=== PATIENT | male | born 1970 | race Two or more races ===

== ENCOUNTER 2017-02-15 14:41 | Outpatient (CLI) | payer BC ==
--- NOTE | 2017-02-16 09:49 | XRAY Report ---
COMPLETE CERVICAL SPINE: 02/15/2017 CLINICAL INDICATION: Neck pain. FINDINGS: AP, lateral, oblique, odontoid views of the cervical spine demonstrate normal height and a lignment of the vertebral bodies. There is mild degenerative disc and facet disease present. There is no evidence of fracture or subluxation. No significant osseous neural foraminal narrowing is appr eciated. IMPRESSION: MILD DEGENERATIVE CHANGES. JOB #: [id number] EXT JOB #:[id number]
== END 2017-02-15 14:42 | disposition home or self-care (01) ==
LOC: DI.N 14:41
PROVIDERS: ATTEND Family Medicine
DX: M50.30 Other cervical disc degeneration, unspecified cervical region (principal); M47.892 Other spondylosis, cervical region
CPT/HCPCS: 72050

== ENCOUNTER 2017-07-24 00:33 | Emergency (ER) | payer BC, OTHER ==
[2017-07-24] MEDS ORDERED: DEXAMETHASONE 10 MG/ML VIAL PO STA (01:15)
[2017-07-24] MEDS ORDERED: CYCLOBENZAPRINE 10 MG TABLET PO STA (01:16)
--- NOTE | 2017-07-24 01:17 | ED Physician Documentation ---
PD HPI BACK PAIN - Stated complaint Stated Complaint: BACK PX - Chief complaint Chief Complaint: Back Pain - History obtained from History obtained from: Patient, Family - History of Present Illness Timing - onset: How many days ago (4) Timing - details: Gradual onset, Still present Location: Lower, Left Quality: Pain, Spasm, Similar to prior episodes Associated symptoms: No: Fever, Weakness, Numbness, Unable to urinate, Hematuria , Incontinent of stool Improves with: Position, Meds Worsened by: Movement, Lifting Contributing factors: Lifting Similar symptoms before: Diagnosis, Work up / diagnostics, Treatment Recently seen: Not recently seen - Additional information Additional information: Patient is a 47 year old male with a history of chronic back pain with multiple surgeries who is presenting to the emergency department for back pain. 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 Patient took a job with [employer] recently. about 4 days ago patient had to lift a number of heavy boxes and seemed to tweak his back. Patient states that he keeps getting sharp, shooting pains down his right side. Patient states that he has plenty of pain medication but he wants to make sure his hardware is in place. Review of Systems Constitutional: denies: Fever, Chills Eyes: reports: Reviewed and negative Ears: reports: Reviewed and negative Nose: reports: Reviewed and negative Throat: reports: Reviewed and negative GI: denies: Abdominal Pain, Nausea, Vomiting : denies: Dysuria, Frequency, Hesitancy, Unable to Void, Incontinent Skin: denies: Rash, Lesions Musculoskeletal: reports: Back pain Neurologic: denies: Generalized weakness, Focal weakness, Numbness Immunocompromised: denies: Immunocompromised PD PAST MEDICAL HISTORY - Past Medical History Past Medical History: Yes Endocrine/Autoimmune: HyPOthyroidism Musculoskeletal: Chronic back pain - Past Surgical History Past Surgical History: Yes - Present Medications Home Medications: Ambulatory Orders Medication Instructions Recorded Confirmed Diclofenac Sodium [Voltaren] 1 applic TID 07/24/17 07/24/17 Hydrocodone/Acetaminophen 1 tab PO Q4H PRN MDD 5 tabs 07/24/17 07/24/17 [Hydrocodone-Acetamin 10-325 mg] Levothyroxine Sodium [Synthroid] 305 mcg PO DAILY 07/24/17 07/24/17 diazePAM [Valium] 5 - 10 mg PO TID PRN #15 tablet 07/24/17 - Allergies Allergies/Adverse Reactions: Allergies Allergy/AdvReac Type Severity Reaction Status Date / Time Iodinated Contrast- Oral and Allergy Hives Verified 07/24/17 01:06 IV Dye - Social History Does the pt smoke?: No Smoking Status: Never smoker Does the pt drink ETOH?: Yes Does the pt have substance abuse?: No - Immunizations Immunizations are current?: Yes PD ED PE NORMAL - Vitals Vital signs reviewed: Yes - General General: Alert and oriented X 3 - HEENT HEENT: Atraumatic - Cardiac Cardiac: RRR - Respiratory Respiratory: No respiratory distress - Abdomen Abdomen: Non distended - Derm Derm: Normal color, Warm and dry - Neuro Neuro: Alert and oriented X 3, No motor deficit, No sensory deficit PD ED PE EXPANDED - General General: Alert, In Pain - Back Back: Soft tissue tenderness (tenderness to palpation in paraspinal muscles), Other (prior surgical scars appreciated) Results - Vitals Vitals: Vital Signs - 24 hr 07/24/17 07/24/17 01:03 02:50 Temperature 36.7 C Heart Rate 85 78 Respiratory 16 16 Rate Blood Pressure 175/94 H 138/96 H O2 Saturation 84 L 99 Oxygen O2 Source Room air - Rads (name of study) lumbar spine x-ray Radiology: Final report received (no acute abnormality) PD MEDICAL DECISION MAKING - ED course Complexity details: reviewed old records, reviewed results, re-evaluated patient , considered differential, d/w patient, d/w family ED course: Patient was seen and examined at bedside. Patient had no focal neurological deficit. decaron and flexeril were ordered as well as imaging. Patient took the decadron but stated that he did not like the way flexeril made him feel and was treated with valium 10mg. Patient's imaging was reviewed and showed no acute abnormalities. Patient was made aware of the findings. patient reported improvement of his symptoms and was stable for discharge with outpatient follow up. Departure - Departure Disposition: 01 Home, Self Care Clinical Impression: Back pain Condition: Good Instructions: ED Low Back Pain Injury Follow-Up: primary,care provider [Other] - Within 3 Days Prescriptions: diazePAM [Valium] 5 - 10 mg PO TID PRN #15 tablet PRN Reason: Spasms Comments: Your x-ray today was within normal limits. The hardware seemed to be aligned. That being said it cannot remark on nerve or soft tissue. it is important that you follow up with your spinal care team and possible an MRI. Forms: Activity restrictions Discharge Date/Time: 07/24/17 02:50
[2017-07-24] MEDS ORDERED: diazePAM 5 MG TABLET PO STA (01:57)
--- NOTE | 2017-07-24 02:19 | XRAY Preliminary Report ---
Exam: XR LUMBAR SPINE 2 VIEW IMPRESSION: 1. Postoperative changes from L3-L5. 2. Mild degenerative disk disease at L2-L3 and L5-S1. 3. No acute abnormality seen. [facility] SITE ID: [id number]
--- NOTE | 2017-07-24 02:20 | XRAY Report ---
EXAM: LUMBOSACRAL SPINE RADIOGRAPHY EXAM DATE: 07/24/2017 02:01 AM. CLINICAL HISTORY: Back pain, prior spinal surgery. COMPARISONS: None. TECHNIQUE: 3 views. FINDINGS: Alignment: Unremarkable. Bones: Five [id number] lumbar vertebral bodies are present. Posterior metallic fusion from L3-L5 . Bilateral laminectomies. Disks: Disk spacers at L3-L4 and L4-L5. Mild degenerative disk disease at L2-L3 and L5-S1. Facets: No dislocation. Sacroiliac Joints: Unremarkable. Soft Tissues: Grossly unremarkable. IMPRESSION: 1. Postoperative changes from L3-L5. 2. Mild degenerative disk disease at L2-L3 and L5-S1. 3. No acute abnormality seen. [facility] Referring Provider Line: [phone] SITE ID: [id number]
[2017-07-24 02:52] VITALS: BP 138/96
== END 2017-07-24 02:50 | disposition home or self-care (01) ==
LOC: ED 00:33
DX: M54.9 Dorsalgia, unspecified (principal); G89.29 Other chronic pain; E03.9 Hypothyroidism, unspecified
CPT/HCPCS: 72100; 99283; A9270

== ENCOUNTER 2018-01-06 10:58 | Outpatient (CLI) | payer BC, OTHER ==
--- NOTE | 2018-01-06 13:55 | XRAY Report ---
Reason: PAIN IN LEFT ANKLE AND JOINTS OF LEFT FOOT Procedure Date: 01/06/2018 Accession Number: [id number] / [id number] Procedure: XR - Ankle 3 View LT CPT Code: FULL RESULT: EXAM: LEFT ANKLE RADIOGRAPHY EXAM DATE: 01/06/2018 11:11 AM. CLINICAL HISTORY: PAIN IN LEFT ANKLE AND JOINTS OF LEFT FOOT. COMPARISON: None. TECHNIQUE: 3 views. FINDINGS: Bones: Normal. No fractures or bone lesions. Joints: Normal. No effusion. No subluxations. The ankle mortise is normally aligned. Soft Tissues: Soft tissue swelling. IMPRESSION: Normal ankle radiography. [facility]
== END 2018-01-06 10:59 | disposition home or self-care (01) ==
LOC: DI 10:58
PROVIDERS: ATTEND Family Medicine
DX: M25.572 Pain in left ankle and joints of left foot (principal)

== ENCOUNTER 2018-02-15 13:29 | Emergency (ER) | payer BC, OTHER ==
[2018-02-15 13:38] VITALS: BP 164/96
--- NOTE | 2018-02-15 14:46 | ED Physician Documentation ---
History of Present Illness - Stated complaint Stated Complaint: FACIAL RASH - Chief complaint Chief Complaint: General - History obtained from History obtained from: Patient - History of Present Illness Timing: Other (About 5 days ago started to feel sick with chills and body aches and developed a headache and over the last day or 2 has developed a painful rash on the left side of the face without problems with the left eye.) Review of Systems Constitutional: reports: Chills, Myalgias, Fatigue. denies: Fever Eyes: denies: Loss of vision, Photophobia, Discharge, Irritation Ears: reports: Ear pain. denies: Loss of hearing, Drainage/discharge PD PAST MEDICAL HISTORY - Past Medical History Endocrine/Autoimmune: HyPOthyroidism Musculoskeletal: Chronic back pain - Past Surgical History Past Surgical History: Yes - Present Medications Home Medications: Ambulatory Orders Medication Instructions Recorded Confirmed Diclofenac Sodium [Voltaren] 1 applic TID 07/24/17 07/24/17 Hydrocodone/Acetaminophen 1 tab PO Q4H PRN MDD 5 tabs 07/24/17 07/24/17 [Hydrocodone-Acetamin 10-325 mg] Levothyroxine Sodium [Synthroid] 305 mcg PO DAILY 07/24/17 07/24/17 "Gout Medicine" 1 tab 02/15/18 Acyclovir 800 mg PO 5XD #50 tablet 02/15/18 Levothyroxine Sodium [Synthroid] 400 mcg PO 02/15/18 predniSONE [Deltasone] 20 mg PO [id number] #21 tab 02/15/18 - Allergies Allergies/Adverse Reactions: Allergies Allergy/AdvReac Type Severity Reaction Status Date / Time acetaminophen [From Percocet] Allergy Hives Verified 02/15/18 13:39 Iodinated Contrast- Oral and Allergy Hives Verified 02/15/18 13:39 IV Dye oxycodone [From Percocet] Allergy Hives Verified 02/15/18 13:39 - Social History Does the pt smoke?: No Smoking Status: Never smoker Does the pt drink ETOH?: Yes Does the pt have substance abuse?: No - Immunizations Immunizations are current?: Yes PD ED PE NORMAL - Vitals Vital signs reviewed: Yes - General General: Alert and oriented X 3, No acute distress - HEENT HEENT: PERRL, EOMI, Other (Mild shingles on the left side of the face with negative floor seen exam on the left and negative Resendiz sign.) - Neck Neck: Supple, no meningeal sign, No bony TTP - Neuro Neuro: Alert and oriented X 3, hair spinner 2-12 intact Eye Opening: Spontaneous Motor: Obeys Commands Verbal: Oriented GCS Score: 15 - Psych Psych: Normal mood, Normal affect Results - Vitals Vitals: Vital Signs - 24 hr 02/15/18 13:36 Temperature 36.5 C Heart Rate 97 Respiratory 18 Rate Blood Pressure 164/96 H O2 Saturation 100 Oxygen O2 Source Room air PD MEDICAL DECISION MAKING - ED course ED course: He declines pain medication. Departure - Departure Disposition: Home, Self Care Clinical Impression: Shingles Qualifiers: Herpes zoster complications: without complications Qualified Code(s): B02.9 - Zoster without complications Condition: Good Record reviewed to determine appropriate education?: Yes Instructions: ED Shingles Prescriptions: Acyclovir 800 mg PO 5XD #50 tablet predniSONE [Deltasone] 20 mg PO [id number] #21 tab Comments: Call your doctor to arrange a follow-up appointment, make the next available appointment. In the interim, return anytime if worse or if new symptoms develop. Your blood pressure was elevated today on check into the emergency department. This does not mean that you have hypertension, it is a common phenomenon to come to the emergency department and have elevated blood pressure. I recommend that you see your primary care physician within the week to have it rechecked when you are feeling better.
== END 2018-02-15 14:55 | disposition home or self-care (01) ==
LOC: ED 13:29
DX: B02.9 Zoster without complications (principal)
CPT/HCPCS: 99283